=== PATIENT | female | born 1950 | race African-American/Black ===

== ENCOUNTER → 2020-03-17 | Outpatient (CLI) | payer MEDICARE, BC ==
[~2020-03-17] MED LIST: ADVAIR 100-501 EACH INH; ALBUTEROL SULF8.5 GM INH; BUTALB-ACETAMI1 EAC1 PO; IBUPROFEN200 MG ORAL; KEFLEX500 MG ORAL; LOTREL 5-10 MG1 EAC1 ORAL; NAPROXEN500 M2 ORAL; NORCO 5-325 TA1 EACH ORAL; PREVACID 24HR15 M1 ORAL; SIMVASTATIN5 MG ORAL; STOMACH PILL SL; SYNTHROID100 MCG ORAL; [UNRECOGNIZED DRUG - REMARK] ORAL
[2020-03-17 10:49] LABS: CALCIUM 9.4 MG/DL (8.5-10.1); CREATININE 1.1 MG/DL (0.55-1.30); POTASSIUM 3.8 MMOL/L (3.5-5.1)
--- NOTE | 2020-03-17 15:35 | Diagnostic Imaging Report ---
Clinical Indication: Abdominal pain Technique: Patient given oral contrast. IV administration nonionic contrast. Venous phase spiral acquisition obtained through the abdomen and pelvis. Multiplanar reconstructions were generated. Total dose length product 612 mGycm. CTDIvol(s) 12 mGy. Dose reduction achieved using automated exposure control Comparison: none Findings: There are colonic diverticula. There is no evidence of diverticulitis. The appendix is normal. No small bowel distention or small bowel wall thickening. No free or loculated intraperitoneal gas or fluid is evident. There is a small fat-containing umbilical hernia. There is a larger more cephalad fat-containing ventral hernia. There is a small sliding-type hiatal hernia. The remainder of the stomach and duodenum are unremarkable. The gallbladder has been removed. The liver is unremarkable. The bile ducts, pancreas are unremarkable. The spleen demonstrates at least 2 subcentimeter low-attenuation lesions in the lower pole which are too small to characterize. The kidneys demonstrate subcentimeter low-attenuation lesions which are too small to characterize. No renal or ureteral calculi, hydronephrosis, or hydroureter. No pelvic mass or adenopathy. Uterus is diminutive, may indicate prior supracervical hysterectomy. The ovaries appear unremarkable. The included lung bases are clear. The bones demonstrate degenerative spondylosis changes. Impression: No definite acute abnormality Colonic diverticulosis. No evidence of acute diverticulitis Subcentimeter low-attenuation splenic and renal lesions, too small to characterize, most likely benign simple cysts. Prior cholecystectomy. Possible prior supracervical hysterectomy-correlate with clinical history Incidental findings as noted, including degenerative spondylosis changes, fat-containing umbilical hernia, fat-containing ventral hernia, small hiatal hernia The CT scanner at [facility] is accredited by the [employer] and the scans are performed using protocols designed to limit radiation exposure to as low as reasonably achievable to attain images of sufficient resolution adequate for diagnostic evaluation.
== END | disposition home or self-care (01) ==
LOC: EDSTATUS 10:00 → CAT 10:30
DX: R10.9 Unspecified abdominal pain (principal); K57.90 Diverticulosis of intestine, part unspecified, without perforation or abscess without bleeding; Z90.49 Acquired absence of other specified parts of digestive tract; K43.9 Ventral hernia without obstruction or gangrene; K44.9 Diaphragmatic hernia without obstruction or gangrene; K42.9 Umbilical hernia without obstruction or gangrene; M47.819 Spondylosis without myelopathy or radiculopathy, site unspecified
CPT/HCPCS: 36415; 74177; 80048; Q9965